=== PATIENT | female | born 1960 | race Caucasian/White ===

== ENCOUNTER 2018-02-04 14:56 | Emergency (ER) | payer OTHER ==
[~2018-02-04] VITALS: Ht 165.1 cm; Wt 90.7 kg
--- OUTSIDE RECORDS SUMMARY | ~2018-02-04 | XMS | Clinical Summary ---
Demographics + + + | Address | [address] | | | [place] [address] | + + + | Home Phone | | + + + | Preferred Language | Unknown | + + + | Marital Status | | + + + | Presybeterian Affiliation | NON | + + + | Race | White | + + + | Ethnic Group | Not or | + + + Author + + + | Author | [facility] | + + + | Organization | [facility] | + + + | Address | Unknown | + + + | Phone | Unavailable | + + + Support + + +---------+ + | Name | Relationship | Address | Phone | + + +---------+ + | DANNIELLE BRUNER | ECON | Unknown | | + + +---------+ + Care Team Providers + +------+ + | Care Venetian Blind Assembler Name | Role | Phone | + +------+ + | Nelly Staples | PP | Unavailable | + +------+ + Source Comments ELIZABETH is fully live on both [facility] and [facility] InPatient.[facility] Allergies + + + + + + | Active Allergy | Reactions | Severity | Noted | Comments | | | | | Date | | + + + + + + | Penicillins | Airway Constriction | High | 12/20/18 | | | | | | 92 | | + + + + + + Current Medications + + + +---------+------+------+-------+ | Prescription | Sig. | Disp. | Refills | Star | End | Statu | | | | | | t | Date | s | | | | | | Date | | | + + + +---------+------+------+-------+ | Cane device | Use as directed | 1 each | 0 | 01/1 | | Activ | | | | | | 0/20 | | e | | | | | | 14 | | | + + + +---------+------+------+-------+ | MULTIVITAMIN ORAL | Take by mouth. | | | | | Activ | | | | | | | | e | + + + +---------+------+------+-------+ | gabapentin 600 mg | Take 600 mg by mouth | | | 04/1 | | Activ | | oral tablet | once daily. | | | 6/20 | | e | | | | | | 17 | | | + + + +---------+------+------+-------+ | ARIPiprazole 20 mg | Take 20 mg by mouth | | | | | Activ | | oral | once daily. | | | | | e | | tabletIndications: | Indications: | | | | | | | Depression Treatment | Depression Treatment | | | | | | | Adjunct | Adjunct | | | | | | + + + +---------+------+------+-------+ | cyclobenzaprine 5 | | | | 04/1 | | Activ | | mg oral tablet | | | | 05/23 | | e | | | | | | 17 | | | + + + +---------+------+------+-------+ | acetaminophen 500 | Take 2 tablets by | | | 03/04 | | Activ | | mg oral | mouth three times | | | 07/24 | | e | | tabletIndications: | daily. | | | 17 | | | | Primary | | | | | | | | osteoarthritis of | | | | | | | | left knee | | | | | | | + + + +---------+------+------+-------+ | ondansetron 8 mg | Take 1 tablet by | 10 | 3 | / | | Activ | | oral | mouth every eight | tablet | | 07/24 | | e | | tabletIndications: | hours as needed | | | 17 | | | | Primary | (nausea/vomiting). | | | | | | | osteoarthritis of | | | | | | | | left knee | | | | | | | + + + +---------+------+------+-------+ | oxyCODONE | Take 1-3 tablets by | 100 | 0 | 05/ | | Activ | | (immediate release) | mouth every three | tablet | | 07/24 | | e | | 5 mg oral | hours as needed for | | | 17 | | | | tabletIndications: | moderate pain. | | | | | | | Primary | | | | | | | | osteoarthritis of | | | | | | | | left knee | | | | | | | + + + +---------+------+------+-------+ | polyethylene | Mix 1 packet and | | | 05/1 | | Activ | | glycol 17 gram oral | take orally three | | | 07/24 | | e | | powder in | times daily as | | | 17 | | | | packetIndications: | needed (1st line - | | | | | | | Primary | for no BM for 2 | | | | | | | osteoarthritis of | days). | | | | | | | left knee | | | | | | | + + + +---------+------+------+-------+ | senna-docusate | Take 1 tablet by | | | 05/ | | Activ | | 8.6-50 mg oral | mouth two times | | | 07/24 | | e | | tabletIndications: | daily. | | | 17 | | | | Primary | | | | | | | | osteoarthritis of | | | | | | | | left knee | | | | | | | + + + +---------+------+------+-------+ | | Take 1 tablet by | 42 | 0 | 06/ | | Activ | | HYDROcodone-acetamin | mouth every six | tablet | | 11/23 | | e | | ophen (NORCO) 5-325 | hours as needed (for | | | 17 | | | | mg oral tablet | pain.). Not to | | | | | | | | exceed 6 in 24 | | | | | | | | hours/ n | | | | | | + + + +---------+------+------+-------+ | DULoxetine 60 mg | Take 60 mg by mouth | | | | | Activ | | oral capsule,delayed | once daily | | | | | e | | release(DR/EC) | | | | | | | + + + +---------+------+------+-------+ | lisinopril 10 mg | Take 1 tablet by | 90 | 3 | 12/0 | | Activ | | oral | mouth once daily. | tablet | | 8/20 | | e | | tabletIndications: | Indications: | | | 17 | | | | hypertension | hypertension | | | | | | + + + +---------+------+------+-------+ | metoprolol | Take 1 tablet by | 90 | 3 | 12/0 | | Activ | | succinate 25 mg oral | mouth once daily. | tablet | | 8/20 | | e | | tablet extended | Indications: atrial | | | 17 | | | | release 24 | tachycardia | | | | | | | hrIndications: | | | | | | | | atrial tachycardia | | | | | | | + + + +---------+------+------+-------+ Active Problems + + + | Problem | Noted Date | + + + | (HFpEF) heart failure with preserved ejection fraction (HCC) | 10/14/2017 | + + + | Atrial tachycardia (HCC) | 10/14/2017 | + + + | Bradycardia | 09/14/2016 | + + + | Shortness of breath | 06/08/2016 | + + + | Essential hypertension | 06/08/2016 | + + + | Precordial pain | 06/08/2016 | + + + | Hypertensive left ventricular hypertrophy with heart failure | 06/08/2016 | | (HCC) | | + + + | Difficult intravenous access | 11/13/2013 | + + + + + | Overview: 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), usually able to get IVs in her R forearm or neck | + + + +---+ | 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 | + + + +---+ | Medtronic dual-chamber pacemaker | | + +---+ + + | Overview: history of severe symptomatic bradycardia due to | | Osuna-Heidy syndrome | + + + +---+ | ASD (atrial septal defect) | | + +---+ + + | 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, 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 | + + + +---+ | PONV (postoperative nausea and vomiting) | | + +---+ Family History + + +------+ + | Medical History | Relation | Name | Comments | + + +------+ + | Cancer | Father | | Lung | + + +------+ + | Arthritis | Mother | | | + + +------+ + | Heart Disease | Mother | | | + + +------+ + + +------+--------+ + | Relation | Name | Status | Comments | + +------+--------+ + | Father | | | | + +------+--------+ + | Mother | | | | + +------+--------+ + Social History + +-------+ +--------+ + | Tobacco Use | Types | Packs/Day | Years | Date | | | | | Used | | + +-------+ +--------+ + | Former Smoker | | 1 | 20 | Quit: 11/13/2005 | + +-------+ +--------+ + + +---+---+---+ | Smokeless Tobacco: | | | | | Never Used | | | | + +---+---+---+ + + +---------+ + | Alcohol Use | Drinks/We | oz/Week | Comments | | | ek | | | + + +---------+ + | No | | | sober for 18 years, history of heavy | | | | | drinking for 4 years | + + +---------+ + + + + | Sex Assigned at | Date Recorded | | | | + + + | Not on file | | + + + Last Filed Vital Signs + + + + | Vital Sign | Reading | Time Taken | + + + + | Blood Pressure | 141/80 | 10/11/2017 1:39 PM PST | + + + + | Pulse | 75 | 10/11/2017 1:39 PM PST | + + + + | Temperature | 36.9 C (98.5 F) | 10/11/2017 1:39 PM PST | + + + + | Respiratory Rate | 18 | 10/11/2017 1:39 PM PST | + + + + | Oxygen Saturation | 97% | 10/11/2017 1:39 PM PST | + + + + | Inhaled Oxygen | - | - | | Concentration | | | + + + + | Weight | 89.4 kg (197 lb 3.2 | 10/11/2017 1:39 PM PST | | | oz) | | + + + + | Height | 162.6 cm (5' 4") | 10/11/2017 1:39 PM PST | + + + + | Body Mass Index | 33.85 | 10/11/2017 1:39 PM PST | + + + + Plan of Treatment +--------+ + + + + | Date | Type | Specialty | Care Team | Description | +--------+ + + + + | 03/17/ | Office | | | | | 2018 | Visit | | | | +--------+ + + + + | 04/11/ | Appointment | | | | | 2017 | | | | | +--------+ + + + + | 04/11/ | Office | | Ricardo La MD | | | 2017 | Visit | | [address] | | | | | | [place] | | | | | | [place], [place] | | | | | | [address] | | | | | | [phone] | | | | | | | | +--------+ + + + + + + + + + | Health Maintenance | Due Date | Last Done | Comments | + + + + + | INFLUENZA VACCINE | | | | | (FLU SHOT) | 8 | | | + + + + + Implants + +------+--------+ +--------+--------+--------+ | Implanted | Type | Area | Manufacture | Device | Expira | Model | | | | | r | | tion | / | | | | | | Identi | Date | Serial | | | | | | fier | | / Lot | + +------+--------+ +--------+--------+--------+ | Implant Total Joint Pps | | Left: | BIOMET | | 11/03/ | 16-116 | | Rnglc+ Ltd Hole Shell [id number] - | | Hip | | | 2022 | 054 / | | [id number]: Qty: 1 on | | | | | | /[id number] | | 12/04/2013 by Sylvia, | | | | | | 0 | | Yesika Campbell MD | | | | | | | + +------+--------+ +--------+--------+--------+ | E1 36mm Rnglc Lnr Mrom Sz 24 | | Left: | BIOMET | | 11/03/ | EP-105 | | - [id number]: Qty: 1 | | Hip | | | 2018 | 994 / | | on 12/04/2013 by Sylvia, | | | | | | /[id number] | | Yesika Campbell MD | | | | | | 0 | + +------+--------+ +--------+--------+--------+ | Implant Total Joint Tprlc 133 | | Left: | BIOMET | | 07/04/ | 51-103 | | Rdcd Distal Type1 Pps So | | Hip | | | 2022 | 110 / | | 11.0 - [id number]: | | | | | | /[id number] | | Qty: 1 on 12/04/2013 by | | | | | | 64 | | Yesika Ward MD | | | | | | | + +------+--------+ +--------+--------+--------+ | 36mm Blanca Cocr Mod Hd -3mm Nk | | Left: | BIOMET | | 04/03/ | 11-363 | | No Skirt - [id number]: | | Hip | | | 3 | 661 / | | Qty: 1 on 12/04/2013 by | | | | | | /[id number] | | Yesika Ward MD | | | | | | 0 | + +------+--------+ +--------+--------+--------+ | Cement Bone Palacos R+G | | Left: | TABBY | | 11/03/ | 00-111 | | Gentamicin 40gm Green - | | Knee | | | 2020 | 3-140- | | [id number]: Qty: 1 on | | | | | | / | | 03/22/2017 by Sylvia, | | | | | | /[id number] | | Yesika Campbell MD | | | | | | 592 | + +------+--------+ +--------+--------+--------+ | Cement Bone Palacos R+G | | Left: | TABBY | | 11/03/ | 00-111 | | Gentamicin 40gm Green - | | Knee | | | 2020 | 3-140- | | [id number]: Qty: 1 on | | | | | | / | | 03/22/2017 by Sylvia, | | | | | | /[id number] | | Yesika Campbell MD | | | | | | 592 | + +------+--------+ +--------+--------+--------+ | Left Medial Tibial | | Left: | BIOMET | | 10/07/ | [id number] | | TrayImplanted: Qty: 1 on | | Knee | | | 2024 | / | | 03/22/2017 by Sylvia, | | | | | | /[id number] | | Yesika Campbell MD | | | | | | 0 | + +------+--------+ +--------+--------+--------+ | Twin Peg FemoralImplanted: | | Left: | BIOMET | | 11/17/ | [id number] | | Qty: 1 on 03/22/2017 by | | Knee | | | 2026 | / | | Yesika Ward MD | | | | | | /[id number] | | | | | | | | 0 | + +------+--------+ +--------+--------+--------+ | Oxd Anatomic Brg Lt Sm Size | | Left: | | | 06/15/ | [id number] | | 5Implanted: Qty: 1 on | | Knee | | | 2019 | / | | 03/22/2017 by Sylvia, | | | | | | /[id number] | | Yesika Campbell MD | | | | | | 0 | + +------+--------+ +--------+--------+--------+ Results Not on filefrom Last 3 Months
--- OUTSIDE RECORDS SUMMARY | ~2018-02-04 | XMS | Clinical Summary ---
Demographics + + + | Address | [address] | | | [place] [address] | + + + | Home Phone | | + + + | Preferred Language | Unknown | + + + | Marital Status | | + + + | Buddhist Affiliation | NON | + + + [...] Team Providers + +------+ + | Care Evaporative Cooler Installer Name | Role | Phone | + +------+ + | Nelly Staples | PP | Unavailable | + +------+ + Source Comments ELIZABETH is fully live on both [facility] Ambulatory and [facility] InPatient.[facility] Allergies + + + + [...] | 2017 | Visit | | [address] | | | | | | [place] | | | | | | [place], [place] | | | | | | [address] | | | | | | [phone] | | | | | | | [...] | 2022 | 054 / | | [id number]: Qty: 1 on | | | | | | /[id number] | | 12/04/2013 by Sylvia, | | | | | | 0 | | Yesika Campbell MD | | | | | | | + +------+--------+ +--------+--------+--------+ | E1 36mm Rnglc Lnr Mrom Sz 24 | | Left: | BIOMET | | 11/03/ | EP-105 | | - [id number]: Qty: 1 | | Hip | | | 2018 | 994 / | | on 12/04/2013 by Sylvia, | | | | | | /[id number] | | Yesika Campbell MD | | | | | | 0 | + +------+--------+ +--------+--------+--------+ | Implant Total Joint Tprlc 133 | | Left: | BIOMET | | 07/04/ | 51-103 | | Rdcd Distal Type1 Pps So | | Hip | | | 2022 | 110 / | | 11.0 - [id number]: | | | | | | /[id number] | | Qty: 1 on 12/04/2013 by | | | | | | 64 | | Yesika Ward MD | | | | | | | + +------+--------+ +--------+--------+--------+ | 36mm Blanca Cocr Mod Hd -3mm Nk | | Left: | BIOMET | | 04/03/ | 11-363 | | No Skirt - [id number]: | | Hip | | | 3 | 661 / | | Qty: 1 on 12/04/2013 by | | | | | | /[id number] | | Yesika Ward MD | | | | | | 0 | + +------+--------+ +--------+--------+--------+ | Cement Bone Palacos R+G | | Left: | TABBY | | 11/03/ | 00-111 | | Gentamicin 40gm Green - | | Knee | | | 2020 | 3-140- | | [id number]: Qty: 1 on | | | | | | / | | 03/22/2017 by Sylvia, | | | | | | /[id number] | | Yesika Campbell MD | | | | | | 592 | + +------+--------+ +--------+--------+--------+ | Cement Bone Palacos R+G | | Left: | TABBY | | 11/03/ | 00-111 | | Gentamicin 40gm Green - | | Knee | | | 2020 | 3-140- | | [id number]: Qty: 1 on | | | | | | / | | 03/22/2017 by Sylvia, | | | | | | /[id number] | | Yesika Campbell MD | | | | | | 592 | + +------+--------+ +--------+--------+--------+ | Left Medial Tibial | | Left: | BIOMET | | 10/07/ | [id number] | | TrayImplanted: Qty: 1 on | | Knee | | | 2024 | / | | 03/22/2017 by Sylvia, | | | | | | /[id number] | | Yesika Campbell MD | | | | | | 0 | + +------+--------+ +--------+--------+--------+ | Twin Peg FemoralImplanted: | | Left: | BIOMET | | 11/17/ | [id number] | | Qty: 1 on 03/22/2017 by | | Knee | | | 2026 | / | | Yesika Ward MD | | | | | | /[id number] | | | | | | | | 0 | + +------+--------+ +--------+--------+--------+ | Oxd Anatomic Brg Lt Sm Size | | Left: | | | 06/15/ | [id number] | | 5Implanted: Qty: 1 on | | Knee | | | 2019 | / | | 03/22/2017 by Sylvia, | | | | | | /[id number] | | Yesika Campbell MD | | | | | | 0 | + +------+--------+ +--------+--------+--------+ Results Not on filefrom Last 3 Months
[2018-02-04] MEDS ORDERED: VICODIN 5-3001 EACH PO (15:11)
[2018-02-04] MEDS ORDERED: GABAPENTIN300 MG PO (15:11)
[2018-02-04] MEDS ORDERED: CYMBALTA30 MG PO (15:12)
[2018-02-04] MEDS ORDERED: ASPIR-LOW81 MG PO (15:12)
[2018-02-04] MEDS ORDERED: LISINOPRIL10 MG PO (15:12)
[2018-02-04] MEDS ORDERED: METOPROLOL SUCC25 MG PO (15:13)
--- NOTE | 2018-02-04 19:58 | EKG ---
[facility] [address] [facility] [address] [place], [place] [address] Signed Atrial-paced rhythm with prolonged AV conduction ST \T\ T wave abnormality, consider inferior ischemia Abnormal ECG No previous ECGs available Confirmed by DIANA MOCTEZUMA MD ([id number]) on 02/04/2018 7:57:54 PM Electronically Signed By: DIANA MOCTEZUMA MD 02/04/181957 PATIENT NAME: SHAQ BRUNER MONIQUE Electrocardiogram DATE OF : 62 PHYSICIAN: DIANA MOCTEZUMA MD REPORT #: [id number] REPORT IS CONFIDENTIAL AND NOT TO BE RELEASED WITHOUT AUTHORIZATION
== END 2018-02-04 21:14 | disposition home or self-care (01) ==
LOC: ED 14:56
DX: R07.2 Precordial pain (principal); I10 Essential (primary) hypertension; Z87.891 Personal history of nicotine dependence; Z88.0 Allergy status to penicillin; Z79.891 Long term (current) use of opiate analgesic; Z79.82 Long term (current) use of aspirin; Z79.899 Other long term (current) drug therapy
CPT/HCPCS: 36415; 71045; 80053; 83874; 84484; 85025; 93005; 93010; 99284